=== PATIENT | female | born 1965 | race Two or more races ===

== ENCOUNTER 2023-04-13 12:33 | Emergency (ER) | payer MEDICAID, OTHER ==
[~2023-04-13] VITALS: Ht 147.3 cm; Wt 65.6 kg
[2023-04-13 13:24] LABS: Chloride 108 mmol/L (98-107); Potassium 3.6 mmol/L (3.5-5.1); Sodium 138 mmol/L (136-145)
[2023-04-13 13:25] LABS: Anion Gap 7 (5-15); Calcium 10.4 mg/dL (8.7-10.4); Carbon Dioxide 23 mmol/L (20-30)
[2023-04-13 13:30] LABS: Blood Urea Nitrogen 8 mg/dL (9-23); Glucose 112 mg/dL (74-106)
[2023-04-13 13:32] LABS: Hematocrit 43.2 % (36.0-46.0); Hemoglobin 14.6 g/dL (12.2-16.2); Mean Corpuscular Hemoglobin 29.8 pg (28.0-32.0); Mean Corpuscular Hgb Conc. 33.7 g/dL (32.0-36.0); Mean Corpuscular Volume 88.5 fL (80.0-100.0); Red Blood Cells 4.89 10^6/uL (4.0-5.20); White Blood Cell 10.1 10^3/uL (4.4-10.8)
[2023-04-13 13:37] LABS: Urine Bacteria FEW /hpf (None Seen); Urine Blood Negative /uL (Negative); Urine Clarity Clear (Clear); Urine Hyaline Cast FEW /lpf (0 - 2); Urine Protein, UAD 1+ (Negative); Urine Specific Gravity 1.012 (1.001-1.035); Urine Urobilinogen Normal (Negative); Urine WBC 2 /hpf (0 - 5)
[2023-04-13 13:38] LABS: Urine Color STRAW (Yellow)
[2023-04-13 13:38] LABS: Basophils % (manual) 0 (0.0-2.0); Blast Cells 0; Promyelocytes % 0; Reactive Lymphocytes 0
[2023-04-13 14:04] LABS: Band Neutrophils % (manual) 6; Eosinophils % (manual) 1 (0-7); Lymphocytes % (manual) 24 (10.0-50.0); Metamyelocytes % 21; Monocytes % (manual) 5 (0-12); Myelocytes % 11
[2023-04-13 14:05] LABS: Platelet Estimate Adequate
[2023-04-13] MEDS: SODIUM CHLORIDE 0.9% 500 ML IV ONE (14:06)
[2023-04-13 15:48] VITALS: BP 150/72; RESP 20; TEMP 97.9
[2023-04-13 15:49] VITALS: PULSE 64; O2SAT 100
== END 2023-04-13 16:01 | disposition home or self-care (01) ==
LOC: ER 12:33
DX: I10 Essential (primary) hypertension (principal); T50.995A Adverse effect of other drugs, medicaments and biological substances, initial encounter; E11.9 Type 2 diabetes mellitus without complications; Z88.0 Allergy status to penicillin; Z98.890 Other specified postprocedural states; Y92.89 Other specified places as the place of occurrence of the external cause
CPT/HCPCS: 36415; 71045; 80048; 81001; 85007; 85027; 93005; 96360; 99285; J7040